=== PATIENT | female | born 1980 | race American Indian/Alaskan Native ===

== ENCOUNTER 2016-10-12 02:29 | Inpatient (IN) | payer BC, MEDICAID ==
[2016-10-12] MEDS ORDERED: DERMOPLAST TP PRN (03:31)
[2016-10-12] MEDS ORDERED: TYLENOL PO PRN (03:31)
[2016-10-12] MEDS ORDERED: SUBLIMAZE IV ONE (03:34)
[2016-10-12] MEDS ORDERED: PITOCin/NS 20 UNIT/1000ML DRIP 20 UNIT/1,000 ML BAG IV SCH (04:00)
[2016-10-12] MEDS ORDERED: SODIUM CHLORIDE FLUSH SYRINGE 10 ML IV NR (04:00)
[2016-10-12] MEDS: MOTRIN PO SCH ×3 (04:30→17:58)
[2016-10-12 06:55] LABS: Basophils % (Auto) 0.2 % (0.0-1.8); Eosinophils % (Auto) 0.4 % (0.0-4.3); Hematocrit 30.5 % (30.3-42.9); Hemoglobin 9.6 gm/dl (10.1-14.3); Mean Corpuscular HGB Conc 31 % (30-34); Mean Corpuscular Hemoglobin 28 pg (28-32); Mean Corpuscular Volume 89 fl (79-97); Platelet Count 215 K/mm3 (140-440); Red Blood Count 3.43 M/mm3 (3.65-5.03); Red Cell Distribution Width 14.4 % (13.2-15.2); White Blood Count 11.7 K/mm3 (4.5-11.0)
[2016-10-12 07:20] LABS: HIV-1 Antigen p24 Non React (Non React); HIVR-1/2 Ab Reactive (Non React)
[2016-10-12 09:08] LABS: Urine Drugs of Abuse Note Disclamer
--- NOTE | 2016-10-12 16:11 | History and Physical Report ---
History of Present Illness Date of examination: 10/12/16 Date of admission: 10/12/16 02:29 Chief complaint: labor History of present illness: 36y/o @ 38+5 weeks presents to L&D after having a home delivery. Patient 's course is complicated by +HIV status. She initiated care during the first trimester. She has received care during the . She reports being on anti-retrovirals during the and was cleared to have a . At presentation, the placenta was still in utero. GBS negative. 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 Social history: - Obstetrical History Expected Date of Delivery: 10/21/16 Actual Gestation: 38 Week(s) 5 Day(s) : 5 Para: 2 Hx # Term Pregnancies: 2 Number of Pregnancies: 0 Number of Living Children: 2 Medications and Allergies Allergies Allergy/AdvReac Type Severity Reaction Status Date / Time latex Allergy Swelling Verified 10/12/16 03:27 Latex, Natural Rubber Allergy Swelling Verified 10/12/16 03:27 Active Meds: Active Medications Acetaminophen (Tylenol) 650 mg PO Q4H PRN PRN Reason: Pain MILD(1-3)/Fever >100.5/TRACY Last Admin: 10/12/16 10:16 Dose: 650 mg Benzocaine/Menthol (Dermoplast) 1 spray TP PRN PRN PRN Reason: Episiotomy Pain Oxytocin/Sodium Chloride (Pitocin/Ns 20 Unit/1000ml Drip) 20 unit in 1,000 mls @ 250 mls/hr IV TITR MAGDALENO Last Admin: 10/12/16 02:40 Dose: 250 mls/hr Ibuprofen (Motrin) 600 mg PO Q6H MAGDALENO Last Admin: 10/12/16 12:57 Dose: 600 mg Sodium Chloride (Sodium Chloride Flush Syringe 10 Ml) 10 ml IV PRN NR Stop: 10/13/16 03:59 Review of Systems All systems: negative - Vital Signs Vital signs: Vital Signs Pulse BP 86 124/72 10/12/16 02:49 10/12/16 02:49 Temp Pulse Resp BP Pulse Ox 99 F 86 20 117/65 10/12/16 16:01 10/12/16 16:01 10/12/16 16:01 10/12/16 16:01 - Physical Exam Breasts: Positive: deferred Cardiovascular: Regular rate Lungs: Positive: Clear to auscultation Abdomen: Positive: normal appearance Results Result Diagrams: 10/12/16 06:25 Abnormal lab results 10/12/16 Range/Units 06:25 WBC 11.7 H (4.5-11.0) K/mm3 RBC 3.43 L (3.65-5.03) M/mm3 Hgb 9.6 L (10.1-14.3) gm/dl Lymph % (Auto) 11.1 L (13.4-35.0) % [place] % (Auto) 8.4 H (0.0-7.3) % [place] # 1.0 H (0.0-0.8) K/mm3 Seg Neutrophils % 79.9 H (40.0-70.0) % Seg Neutrophils # 9.3 H (1.8-7.7) K/mm3 All other labs normal. Assessment and Plan - Patient Problems (1) Labor, precipitous, delivered Current Visit: Yes Status: Acute Plan to address problem: routine care (2) HIV affecting , antepartum Current Visit: Yes Status: Acute Qualifiers: Trimester: T
[2016-10-12] MEDS ORDERED: NORCO 5/325 PO PRN (16:24)
--- NOTE | 2016-10-12 16:24 | Procedure Note ---
OB Delivery Note - Delivery Date of Delivery: 10/12/16 Surgeon: GALEN VEGA - Vaginal Delivery presentation: vertex Delivery position: OA Intrapartum events: precipitous labor- <3hr Delivery monitor: none Route of delivery: Delivery placenta: spontaneous Delivery cord: 3 umbilical vessels Anesthesia: none Delivery comments: The patient presented to L&D after having a home delivery of a liveborn male infant at term. The placenta was still in place at the time of presentation. She had a spontaneous delivery of the placenta without evidence of laceration. Infant weight of 3.26kg - Infant A Gender: Male (weight 3.26kg)
[2016-10-12 16:54] LABS: Hematocrit 29.7 % (30.3-42.9); Hemoglobin 9.5 gm/dl (10.1-14.3)
[2016-10-13] MEDS: MOTRIN PO SCH ×3 (01:25→20:33)
[2016-10-13] MEDS ORDERED: BOOSTRIX IM ONE (06:00)
--- NOTE | 2016-10-13 17:23 | Progress Note ---
Assessment and Plan - Patient Problems (1) Labor, precipitous, delivered Current Visit: Yes Status: Acute (2) HIV affecting , antepartum Current Visit: Yes Status: Acute Qualifiers: Trimester: T Plan to address problem: patient doing well discharge home tomorrow Subjective - Subjective Date of service: 10/13/16 Interval history: Patient is without complaints. Doing well. receiving treatment Patient reports: appetite normal, voiding normally, pain well controlled [place]: doing well Objective - Vital Signs Latest vital signs: Vital Signs Temp Pulse Resp BP 10/13/16 08:26 98.2 F 90 20 110/70 10/12/16 23:50 99.0 F 100 H 20 100/75 Intake and Output 10/13/16 10/13/16 10/13/16 06:59 14:59 22:59 Intake Total 480 600 Balance 480 600 Intake: Oral 480 600 Other: Total, Intake Amount 240 360 # Voids Void 1 1 - Exam Uterus: Present: normal, firm
--- NOTE | 2016-10-13 17:25 | Discharge Summary ---
Providers - Providers Date of Admission: 10/12/16 02:29 Date of discharge: 10/14/16 Attending physician: GALEN VEGA Primary care physician: GALEN VEGA Hospitalization Reason for admission: active labor Delivery: complications: none Discharge diagnosis: IUP at term delivered baby: male Hospital course: Patient had a precipitous delivery at home. uncomplicated. Condition at discharge: Good Disposition: DISCHARGED TO HOME OR SELFCARE - Discharge Diagnoses (1) Labor, precipitous, delivered Status: Acute (2) HIV affecting , antepartum Status: Acute Qualifiers: Trimester: T Plan - Discharge Medications Prescriptions: HYDROcodone/APAP 5-325 [[place] 5/325] 1 each PO Q6HR PRN #30 tablet PRN Reason: Pain Ibuprofen [Motrin] 800 mg PO Q8HR PRN #60 tablet PRN Reason: Pain - Provider Discharge Summary Activity: no sex for 6 weeks, no heavy lifting 4 weeks, no strenuous exercise Diet: routine Instructions: routine Additional instructions: [] Smoking cessation referral if applicable(refer to patient education folder for contact #) [] Refer to [facility] Booklet Call your doctor immediately for: * Fever > 100.5 * Heavy vaginal bleeding ( >1 pad per hour) * Severe persistent headache * Shortness of breath * Reddened, hot, painful area to leg or breast * Drainage or odor from incision. * Keep incision clean and dry at all times and follow doctor's instructions regarding bathing/showering schedule visit in 4 weeks - Follow up plan
[2016-10-14] MEDS: MOTRIN PO SCH ×3 (00:20→12:23)
[2016-10-14 17:48] VITALS: BP 110/70
[2016-10-20 07:50] LABS: HIV-1 Antibody Differentiation SEE SCANNED RESULTS; HIV-2 Antibody Differentiation SEE SCANNED RESULTS
== END 2016-10-14 18:55 | disposition home or self-care (01) | DRG 774 ==
LOC: LD 02:29 → OB 05:09
PROVIDERS: ADMIT Obstetrics & Gynecology; ATTEND Obstetrics & Gynecology
PROC: 10E0XZZ Delivery of Products of Conception, External Approach (ICD-10-PCS; principal; 2016-10-12)
DX: O98.713 Human immunodeficiency virus [HIV] disease complicating pregnancy, third trimester (principal); O62.3 Precipitate labor; Z37.0 Single live birth; Z3A.38 38 weeks gestation of pregnancy; O09.523 Supervision of elderly multigravida, third trimester; Z91.040 Latex allergy status; Z91.048 Other nonmedicinal substance allergy status
CPT/HCPCS: 36415; 80307; 85014; 85018; 85025; 86592; 86689; 86706; 86762; 86803; 86850; 86900; 86901; 87806; 90471; 90715